=== PATIENT | female | born 1990 | race Caucasian/White ===

== ENCOUNTER 2016-09-29 05:39 | Outpatient (CLI) | payer BC, OTHER ==
[~2016-09-29] VITALS: Ht 154.9 cm; Wt 52.2 kg
[~2016-09-29 05:39] MED LIST: ACHD5005 PO; BENZ56AE TP; DCS100C PO; FRS325T PO; IBP600T1 PO
--- OUTSIDE RECORDS SUMMARY | 2016-09-29 05:42 | XMS REPORT | Continuity of Care Document ---
Author Author [facility] Organization [facility] Address Unknown Phone Unavailable Support Name Relationship Address Phone FAUZIA PLASCENCIA Next Of Kin [address] [place] [address] [phone] Insurance Providers Payer Name Policy Number Subscriber Name Relationship [facility] Emp [id number] Kristina Plascencia Nani 01 Self / Same As Patient Advance Directives Directive Response Recorded Date Advance Directives N 05/08/13 9:00pm Organ Donor N 05/08/13 9:00pm Problems No Known Problems or Medical conditions. Family History History Response Recorded Date/Time Hx Family Cancer N 05/08/13 11:43pm Hx Family Breast Cancer N 05/08/13 11: 43pm Hx Family Lung Cancer N 05/08/13 11:43pm Hx Family Colorectal Cancer N 05/08/13 11 :43pm Hx Family Cardiac Disorders Y 05/08/13 11 :43pm Hx Family Myocardial Infarction Y MGM 11:43pm Social History History Response Recorded Date/Time Alcohol Use Denies Use 05/08/13 11:41pm Recreational Drug Use N 05/08/13 11:41pm Recent Foreign Travel N 05/08/13 11:41pm Recent Infectious Disease Exposure N 11:41pm Hospitalization with Isolation Denies 5:47pm Sexually Transmitted Disease N 05/08/13 11:41pm Allergies, Adverse Reactions, Alerts Allergen Type Severity Reaction Last Updated No Known Drug Allergies 05/08/13 Medications Medication Dose Units Route Sig Qty Days Acetaminophen/Hydrocodone Bitart ([place] 5/325 Mg) 1 Tab PO Q4H PRN 15 Ferrous Sulfate (Feosol Tab) 325 Mg PO DAILY 30 Benzocaine/Menthol (Dermoplast [place]) 56 Ml TP UD PRN 1 Docusate Sodium (Colace Cap) 100 Mg PO BID 20 Ibuprofen (Motrin) 600 Mg PO Q6H 40 Immunizations Name Given Type MMR 05/10/13 A Tdap 05/10/13 A influenza, split (incl. purified surface antigen) 05/10/13 A MMR 05/10/13 A Tdap 05/10/13 A influenza, split (incl. purified surface antigen) 05/10/13 A Response Recorded Date/Time Status not known Unknown Results No Known Relevant Diagnostic Tests, Laboratory Data and/or Discharge Summary. Encounters Encounter Location Date/Time Discharged Inpatient [facility] 9:44pm
[2016-09-30] MEDS ORDERED: IBUP-1773 PO (09:05)
== END 2016-09-29 11:13 ==
LOC: PREOP 05:39
PROVIDERS: ATTEND Obstetrics & Gynecology
DX: Z01.818 Encounter for other preprocedural examination (principal); Z30.432 Encounter for removal of intrauterine contraceptive device

== ENCOUNTER 2016-09-30 07:00 | Day surgery (SDC) | payer BC, OTHER ==
[~2016-09-30] VITALS: Ht 154.9 cm; Wt 52.2 kg
[2016-09-30 07:38] LABS: BASOPHILS % (AUTO) 1 % (0-10); EOSINOPHILS # (AUTO) 0.2 10^3/uL (0.0-0.3); EOSINOPHILS % (AUTO) 3 % (0-10); LYMPHOCYTES # (AUTO) 1.7 X 10^3 (1.0-4.0); LYMPHOCYTES % (AUTO) 26 % (12-44); MEAN CORPUSCULAR HEMOGLOBIN 32 PG (25-34); MEAN CORPUSCULAR HGB CONC 36 G/DL (32-36); MEAN CORPUSCULAR VOLUME 88 FL (80-99); MEAN PLATELET VOLUME 9.6 FL (7.4-10.4); MONOCYTES # (AUTO) 0.4 X 10^3 (0.0-1.0); MONOCYTES % (AUTO) 6 % (0-12); NEUTROPHILS # (AUTO) 4.2 X 10^3 (1.8-7.8); NEUTROPHILS % (AUTO) 65 % (42-75); PLATELET COUNT 317 10^3/uL (130-400); RED CELL DISTRIBUTION WIDTH 12.2 % (10.0-14.5); WHITE BLOOD COUNT 6.5 10^3/uL (4.3-11.0)
[2016-09-30] MEDS ORDERED: LACTATED RINGERS 1,000 ML IV PRN (07:52)
[2016-09-30 07:55] VITALS: BP 116/67
[2016-09-30] MEDS ORDERED: LIDOCAINE PF 2% 10 ML (XYLOCAINE) AMP ONE (07:58)
[2016-09-30] MEDS ORDERED: ONDANSETRON 4 MG/2 ML (SDV) Z0FRAN ONE (07:58)
[2016-09-30] MEDS ORDERED: DEXAMETHASONE PF 10 MG/ML (DECADRON) VIAL ONE (07:58)
[2016-09-30] MEDS ORDERED: proPOfol 200 MG/20 ML (DIPRIVAN) VIAL IV ONE (07:58)
[2016-09-30] MEDS ORDERED: KETOROLAC 30 MG/ML VIAL ONE (07:59)
[2016-09-30] MEDS ORDERED: fentaNYL INJECTION 100 MCG/2 ML AMP ONE (07:59)
[2016-09-30] MEDS ORDERED: MIDAZOLAM 2 MG/2 ML (VERSED) VIAL ONE (07:59)
[2016-09-30] MEDS ORDERED: BUPIVACAINE 0.25% 30 ML (SENSORCAINE) VIAL ONE (08:11)
--- NOTE | 2016-09-30 08:32 | Progress Note-Pre Operative ---
Pre-Operative Progress Note H&P Reviewed The H&P was reviewed, patient examined and no changes noted. Date H&P Reviewed: Sep 30, 2016 Time H&P Reviewed: 08:32 Pre-Operative Diagnosis: Retained IUD, Bicornuate uterus ESAU OLIVEROS DO Sep 30, 2016 8:32 am
[2016-09-30] MEDS ORDERED: ONDANSETRON 4 MG/2 ML (SDV) Z0FRAN IVP PRN ×2 (09:00→09:15)
[2016-09-30] MEDS ORDERED: morphine INJ 10 MG/ML 1ML (SYR OR VIAL) IVP PRN (09:00)
[2016-09-30] MEDS ORDERED: MEPERIDINE (DEMEROL) INJ 50 MG/ML IVP PRN (09:00)
[2016-09-30] MEDS ORDERED: D5 LR IV SOLUTION 1,000 ML IV SCH (09:04)
[2016-09-30] MEDS ORDERED: IBUP-1773 PO (09:05)
--- NOTE | 2016-09-30 09:06 | Discharge Inst-Women's Service ---
Discharge Inst-Women's Serv Depart Medication/Instructions New, Converted or Re-Newed RX: RX on Chart Consults/Follow Up Additional Follow Up: Yes Orders/Referrals Dr. Oliveros in 3 weeks Activity Driving Instructions: You May Drive NO SMOKING: NO SMOKING Nothing Inside Vagina: No Douching, No [address], No Tampons Other Activity nothing in vagina for 2 days Diet Discharge Diet: No Restrictions Symptoms to Report to : Bleeding Excessive, Pain Increased, Fever Over 101 Degrees F, Vaginal Bleeding Increase, Questions/Concerns For Any Problems or Questions: Contact Your Physician ESAU OLIVEROS DO Sep 30, 2016 09:06
[2016-09-30] MEDS ORDERED: KETOROLAC 30 MG/ML VIAL IVP ONE (09:15)
[2016-09-30 09:30] VITALS: BP 101/67
[2016-09-30 10:00] VITALS: BP 97/69
--- NOTE | 2016-10-01 11:25 | OPERATIVE REPORT ---
PROCEDURE PHYSICIAN: ESAU OLIVEROS DATE OF PROCEDURE: 09/30/2016 PREOPERATIVE DIAGNOSIS: 1. Retained IUD. 2. Bicornate uterus. POSTOPERATIVE DIAGNOSES: 1. Retained IUD. 2. Bicornate uterus. PROCEDURE: Removal of IUD under IV sedation. SURGEON: Dr. Esau Oliveros. ANESTHESIA: IV sedation. ESTIMATED BLOOD LOSS: Minimal. URINE OUTPUT: 50 mL FLUID: 500 mL lactated ringer solution. FINDINGS: Retained IUD and a palpable bicornate uterus on bimanual examination. INDICATIONS FOR THE PROCEDURE: This 25-year-old female was coming into my office earlier this week for an annual well woman update on her care as well as removal of her IUD as she is planning for in the near future. Upon attempt to remove the IUD, it was very difficult and uncomfortable for the patient and it was not coming with gentle pulling on the strings. Therefore, I discussed with the patient doing this under IV sedation. The risk of the procedures was discussed with the patient in detail including risk of anesthesia. After all of her questions were answered she is scheduled later this week on . In the preoperative area it was once again reviewed with her mother and present the procedure in detail and the possible use of hysteroscopy. Once the consent was obtained, the patient was taken to the operating room. OPERATIVE REPORT IN DETAIL: Once in the operating room, IV sedation was found to be adequate. She was placed in dorsal lithotomy position, prepped and draped in the normal sterile fashion. A weighted speculum was inserted in the patient's vagina and right angle retractor is used to visualize the cervix. It was grasped at the 12 o'clock position using long Allis clamp. I perform a paracervical block at 3 and 9 o'clock position using 0.25% Marcaine. A total of 10 mL of are used, 5 at each injection site. I make injection site hemostatic using silver nitrate. I then grasp the IUD strings and with gentle pressure I am not able to dislodge the IUD therefore, I do take a narrow Haleigh and tease my way into the cervix to find the tip of the IUD. Once I find the tip of the IUD, easily removed by grasping the tip of the IUD and pulling it straight out. There is no active bleeding noted from the uterus afterwards. All the instruments were then removed from the patient's vagina. Straight catheterization is used to drain the bladder, the patient tolerated the procedure well and was taken to the recovery area in stable condition. Job ID: [id number] Dictated Date: 09/30/2016 09:28:18 Driver Salesman Date: 10/01/2016 11:16:01 / deborah
== END 2016-09-30 10:06 | disposition home or self-care (01) ==
LOC: SDC 07:00
PROVIDERS: ATTEND Obstetrics & Gynecology
DX: Z30.432 Encounter for removal of intrauterine contraceptive device (principal); Q51.3 Bicornate uterus
CPT/HCPCS: 36415; 84703; 85025; 86850; 86900; 86901; 87081

== ENCOUNTER → 2018-05-25 | Outpatient (CLI) | payer BC ==
[~2018-05-25] MED LIST changes: +IBUP-1773 PO
--- NOTE | 2018-05-25 11:53 | Diagnostic Imaging Report ---
INDICATION: survey. TECHNIQUE: Multiple real-time grayscale images were obtained over the gravid uterus. COMPARISON: There are no prior studies available for comparison. FINDINGS: There is a single live fetus in variable presentation. heart motion was noted and a rate of 122 BPM was recorded. There were no abnormalities identified but the spine was not well visualized due to lie. I would recommend that a short-term (4-6 week) followup ultrasound exam be performed for further study. The growth parameters are fairly uniform. The placenta is fundal and along the uterine body on the left. There is no sign of a previa. The amniotic fluid volume is within normal limits. The cervix was identified and measures 4.6 cm in length. IMPRESSION: 1. There is a single live fetus at approximately 21 weeks 2 days gestation +/-1.5 weeks. The EDC is October 03, 2018. 2. There were no abnormalities identified, although the spine was not optimally visualized. Recommendations as above. 3. The growth parameters are fairly uniform. Biometrical measurements are as follows: Biparietal 5.02 cm, age 21 weeks 2 days. Head circumference 18.36 cm, age 20 weeks 6 days. Abdominal circumference 17.18 cm, age 22 weeks 1 days. Femur length 3.4 cm, age 20 weeks 5 days. Sonographic estimate age: 21 weeks 2 days. Sonographic estimated date of delivery: 10/03/2018. Estimated Weight: 421 gm (+/- 62 gm). LMP percentile: 51%. heart rate: 123 beats per minute. number: 1 of 1. Dictated by: Dictated on workstation # [id number]
== END ==
LOC: RAD 10:02
PROVIDERS: ATTEND Obstetrics & Gynecology
DX: Z36.89 Encounter for other specified antenatal screening (principal); Z3A.21 21 weeks gestation of pregnancy
CPT/HCPCS: 76805

== ENCOUNTER 2018-09-20 03:23 | Outpatient (CLI) | payer BC ==
[~2018-09-20] VITALS: Ht 154.9 cm; Wt 65.9 kg
--- NOTE | 2018-09-20 03:30 | NUR ---
KRISTINA PLASCENCIA presented to unit via ambulation from home, accompanied by , with c/o CONTRACTIONS. KRISTINA PLASCENCIA weighed, gowned, voided, and to bed. EFHM and TOCO applied, VS taken. KRISTINA PLASCENCIA oriented to bed controls, call light, TV, heat, and A/C controls.
[2018-09-20 03:40] VITALS: BP 110/75
[2018-09-20] MEDS ORDERED: PREN-159 PO (03:51)
[2018-09-20 04:18] LABS: BILIRUBIN,URINE NEGATIVE (NEGATIVE); CLARITY,URINE CLEAR; COLOR,URINE YELLOW; GLUCOSE, URINE (UA) NEGATIVE (NEGATIVE); KETONES,URINE NEGATIVE (NEGATIVE); LEUKOCYTE ESTERASE ,URINE 2+ (NEGATIVE); NITRITE,URINE NEGATIVE (NEGATIVE); PH,URINE 7 (5-9); PROTEIN,URINE NEGATIVE (NEGATIVE); UROBILINOGEN,URINE NORMAL (NORMAL)
[2018-09-20 04:30] LABS: BACTERIA,URINE TRACE /HPF; WBC,URINE 0-2 /HPF
--- NOTE | 2018-09-20 05:35 | NUR ---
Pt. discharged home on labor precautions and instructed when she should return. Discharge instructions given and explained. Pt. verbalized understanding, signature to verify. Pt. ambulated off unit with all personal belongings in possession, accompanied by .
[2018-09-20] MEDS ORDERED: FLU QUADRIvalent (5+ YOA) 2018-2019 (AFLURIA) 0.5 ML IM ONE (08:30)
[2018-09-20] MEDS ORDERED: ONDANSETRON 4 MG/2 ML (SDV) Z0FRAN ONE (14:53)
[2018-09-20] MEDS ORDERED: D5 LR IV SOLUTION 1,000 ML IV ONE (14:53)
[2018-09-20] MEDS ORDERED: HYDROmorphone 2 MG/ML VIAL (DILAUDID) ONE (14:53)
[2018-09-20] MEDS ORDERED: SUFENTA 0.6MCG/ML BUPIVA 0.125 100 ML ONE (15:29)
[2018-09-20] MEDS ORDERED: fentaNYL INJECTION 100 MCG/2 ML AMP ONE (15:35)
[2018-09-20] MEDS ORDERED: LIDOCAINE/EPI 2% 1:200,00 (XYLOCAINE) 10 ML VIAL ONE (15:53)
[2018-09-20] MEDS ORDERED: BUPIVACAINE SPINAL 0.75% (SENSORCAINE) 2 ML AMP ONE (18:05)
[2018-09-20] MEDS ORDERED: ACHD5005 PO (18:58)
[2018-09-20] MEDS ORDERED: Benzocaine/Menthol TP (18:58)
[2018-09-20] MEDS ORDERED: IBUP-844 PO (18:58)
[2018-09-20] MEDS ORDERED: DOCU100C37 PO (18:58)
[2018-09-20] MEDS ORDERED: FERR325T18 PO (18:58)
== END 2018-09-20 05:35 ==
LOC: LDRP 03:23 → WSo 03:23
PROVIDERS: ATTEND Obstetrics & Gynecology
DX: O47.1 False labor at or after 37 completed weeks of gestation (principal); Z3A.38 38 weeks gestation of pregnancy
CPT/HCPCS: 81000; 99213

== ENCOUNTER 2018-09-20 14:43 | Inpatient (IN) | payer BC ==
[2018-09-20] VITALS (22 sets, daily range): BP systolic 93–143; BP diastolic 50–90
[~2018-09-20] VITALS: Ht 154.9 cm; Wt 65.3 kg
--- NOTE | 2018-09-20 14:40 | NUR ---
KRISTINA PLASCENCIA presented to unit via w/c, accompanied by , with c/o contractions. Pt. weighed, gowned, voided, and to bed. EFHM and TOCO applied, VS taken. Pt. oriented to bed controls, call light, TV, heat, and A/C controls.
[~2018-09-20 14:43] MED LIST changes: +PREN-159 PO
--- NOTE | 2018-09-20 14:48 | NUR ---
SVE 6cm, 80%. reports c/o ctx's q 3-4 mins apart. denies vaginal bleeding or leaking fluid. +FM.
--- NOTE | 2018-09-20 14:49 | NUR ---
was called with pt's admit exam, monitor tracing and c/o's pain. admission orders received .
[2018-09-20] MEDS ORDERED: D5 LR IV SOLUTION 1,000 ML IV SCH (14:54)
[2018-09-20] MEDS ORDERED: HYDROmorphone 2 MG/ML VIAL (DILAUDID) IV PRN (15:00)
[2018-09-20] MEDS ORDERED: ONDANSETRON 4 MG/2 ML (SDV) Z0FRAN IVP ONE (15:00)
--- NOTE | 2018-09-20 15:03 | NUR ---
#20g IV to Rt.wrist x1 attempt by this RN. site patent, secured with opsite. admission labs collected prior to IVF's infusing. pt breathing with ctx's.
--- NOTE | 2018-09-20 15:09 | NUR ---
Dilaudid 0.5ml IV given for c/o's pain. cont breathing with ctx's.
--- NOTE | 2018-09-20 15:10 | NUR ---
zofran 4mg IV given.
--- NOTE | 2018-09-20 15:17 | NUR ---
here. monitor tracing reviewed. SVE 8cm. AROM. moderate amount clear fluid noted. belén-care offered.
[2018-09-20 15:23] LABS: BASOPHILS % (AUTO) 0 % (0-10); EOSINOPHILS % (AUTO) 0 % (0-10); HEMATOCRIT 38 % (35-52); HEMOGLOBIN 13.2 G/DL (11.5-16.0); LYMPHOCYTES # (AUTO) 1.3 X 10^3 (1.0-4.0); LYMPHOCYTES % (AUTO) 10 % (12-44); MEAN CORPUSCULAR HEMOGLOBIN 30 PG (25-34); MEAN CORPUSCULAR HGB CONC 35 G/DL (32-36); MEAN CORPUSCULAR VOLUME 86 FL (80-99); MEAN PLATELET VOLUME 10.4 FL (7.4-10.4); MONOCYTES % (AUTO) 7 % (0-12); NEUTROPHILS # (AUTO) 10.9 X 10^3 (1.8-7.8); NEUTROPHILS % (AUTO) 82 % (42-75); PLATELET COUNT 230 10^3/uL (130-400); RED CELL DISTRIBUTION WIDTH 12.6 % (10.0-14.5); WHITE BLOOD COUNT 13.2 10^3/uL (4.3-11.0)
--- NOTE | 2018-09-20 15:26 | NUR ---
1 liter LR bolus infusing prior to epidural placement.
[2018-09-20] MEDS ORDERED: LACTATED RINGERS 1,000 ML IV ONE ×2 (15:34)
--- NOTE | 2018-09-20 15:34 | History & Physical-OB ---
OB - Chief Complaint & HPI Date/Time Date of Admission: Date of Admission: Date seen by a Provider: Sep 20, 2018 Time Seen by a Provider: 15:00 Chief Complaint/History OB-Reason for Admission/Chief: Onset of Labor Hx : 2 Hx Para: 1 Expected Date of Delivery: Oct 03, 2018 Gestational Age in Weeks: 38 Gestational Age in Days: 1 Admission Nurse Assessment Rev: Yes History of Labs O pos Antibody neg RI RPR NR HBsAg NR HIV NR GC neg GBS neg Allergies and Home Medications Allergies Coded Allergies: No Known Drug Allergies (Unverified , 05/08/13) Home Medications No.137/Iron/Folic Acd 1 Each Tablet, 1 EACH PO DAILY, (Reported) Patient Home Medication List Home Medication List Reviewed: Yes OB - History Hx of Present Care: Yes Ultrasounds: Normal mid trimester US Obstetrical Complications: None Medical Complications: None Obstetrical History Hx Termination: No Hx Multiple Gestation: No Hx Stillbirth: No Hx Complication: No Hx Induced Hypertens: No Hx Maternal Gestational Diabet: No Delivery History Hx Dystocia: No Hx Large For Gestational Age I: No Hx Small for Gestational Age I: No Hx Section: No Hx Vaginal Delivery Post C-Sec: No Hx Blood Disorders: No Adverse Rxn to Tranfusion: No Patient Past Medical History n/a Social History/Family History Sexually Transmitted Disease: No Immunizations Hepatitis A: No Hepatitis B: No Tetanus Booster (TDap): Unknown OB - Admission Exam Physical Exam HEENT: NCAT Heart: Rhythm Normal Lungs: Clear Abdomen: Gravid Extremities: Normal Reflexes: Normal Cervical Dilatation: 6cm Effacement: 75% Station: -1 Membranes: Intact Heart Rate: 130's Accelerations: Accelerations Present Decelerations: Variable Decelerations Short Term Variability: Present Finance Intern Variability: Average (6-25) Contractions on Admission: < 5 Minutes Apart Intensity: Firm Labs Laboratory Tests Test 09/20/18 15:03 Range/Units White Blood Count 13.2 H 4.3-11.0 10^3/uL Red Blood Count 4.34 L 4.35-5.85 10^6/uL Hemoglobin 13.2 11.5-16.0 G/DL Hematocrit 38 35-52 % Mean Corpuscular Volume 86 80-99 FL Mean Corpuscular Hemoglobin 30 25-34 PG Mean Corpuscular Hemoglobin Concent 35 32-36 G/DL Red Cell Distribution Width 12.6 10.0-14.5 % Platelet Count 230 130-400 10^3/uL Mean Platelet Volume 10.4 7.4-10.4 FL Neutrophils (%) (Auto) 82 H 42-75 % Lymphocytes (%) (Auto) 10 L 12-44 % Monocytes (%) (Auto) 7 0-12 % Eosinophils (%) (Auto) 0 0-10 % Basophils (%) (Auto) 0 0-10 % Neutrophils # (Auto) 10.9 H 1.8-7.8 X 10^3 Lymphocytes # (Auto) 1.3 1.0-4.0 X 10^3 Monocytes # (Auto) 1.0 0.0-1.0 X 10^3 Eosinophils # (Auto) 0.0 0.0-0.3 10^3/uL Basophils # (Auto) 0.0 0.0-0.1 10^3/uL OB - Assessment/Plan/Diagnosis Assessment Assessment: active labor Admission Dx 27 yo @ 38 weeks Active labor GBS neg Bicornuate uterus Admission Status: Inpatient Order (span 2 midnights) Reason for Inpatient Admission: Active labor Plan Plan: Other (AROM, and analgesia) ESAU OLIVEROS DO Sep 20, 2018 15:34
[2018-09-20 15:45] LABS: BILIRUBIN,URINE NEGATIVE (NEGATIVE); CLARITY,URINE CLEAR; COLOR,URINE YELLOW; GLUCOSE, URINE (UA) NEGATIVE (NEGATIVE); KETONES,URINE NEGATIVE (NEGATIVE); LEUKOCYTE ESTERASE ,URINE 2+ (NEGATIVE); NITRITE,URINE NEGATIVE (NEGATIVE); PH,URINE 7 (5-9); PROTEIN,URINE NEGATIVE (NEGATIVE); UROBILINOGEN,URINE NORMAL (NORMAL)
[2018-09-20] MEDS ORDERED: EPIDURAL (SUFENTA 0.6MCG/ML BUPIVA 0.125%) 100 ML BAG EPI PRN (15:45)
[2018-09-20] MEDS ORDERED: NALOXONE 0.4 MG/ML 1 ML (NARCAN) VIAL IV PRN (15:45)
[2018-09-20] MEDS ORDERED: ONDANSETRON 4 MG/2 ML (SDV) Z0FRAN IV PRN (15:45)
[2018-09-20 15:55] LABS: AMORPHOUS SEDIMENT,UR FEW AMOR PHOSPHATE /LPF; BACTERIA,URINE FEW /HPF; RBC,URINE RARE /HPF
[2018-09-20] MEDS ORDERED: OXYTOCIN/NORMAL SALINE 500 ML IV ONE (16:17)
[2018-09-20] MEDS: OXYTOCIN/NORMAL SALINE 500 ML IV SCH ×2 (18:32→19:06)
[2018-09-20] MEDS ORDERED: METHYLERGONOVINE 0.2 MG/ML (METHERGINE) AMP ONE (18:32)
--- NOTE | 2018-09-20 18:54 | OB Labor & Delivery Record ---
L&D History Date of Service Date of Service: Sep 20, 2018 History Expected Date of Delivery: Oct 03, 2018 Gestational Age in Weeks: 38 Hx : 2 Hx Para: 1 Complications Events: Routine care Operative Indications (Cesarea: N/A-Vaginal Delivery Intrapartal Events: None L&D Stage1 Stage One Onset of Labor - Date: Sep 20, 2018 Monitors and Tracing Monitor Mode: External Monitor Accelerations: Uniform Monitor Decelerations: Variable Station: -1 Tetryl Boiling Tub Operator Variability: Average (6-10) Short Term Variability: Present Presentation: Vertex Rupture of Membranes Spontaneous Ruture of Membrane: No Amniotic Membrane Rupture Time: 15:30 Amniotic Membrane Fluid Desc.: Clear Vaginal Bleeding Description: Normal Show Progress/Notes Patient received a spinal dose due to 8 cm dilatation after AROM was performed. She progressed from there without further augmentation to complete and +1 station. L&D Stage2 Stage Two Stage II Date: Sep 20, 2018 Monitors and Tracing Monitor Mode: External Monitor Accelerations: None Monitor Decelerations: Variable Jail Variability: Average (6-10) Short Term Variability: Present Position: Right Occiput Anterior Presentation: Vertex Signs of Distress by FHT Signs of Distress repetitive variable decels in to the 60s Cord Descript/Complications Cord Vessel Description: 3 Vessels Delivery Type Infant Delivery Method: Low Vacuum Extraction Anterior Shoulder: Right Episiotomy/Perineal Laceration Laceraction(s)/Extensions: Yes Episiotomy Description: Right Mediolateral Sutures Used: Vicryl Degree (describe repair) Due to maternal exhaustion and inability to progress vertex past +2-+3 station, kiwi vacuum extractor used for low extraction. Perineum infiltrated using .25% marcaine with epi, and RML performed. Suction cup placed down mid sagital suture line, and with next maternal ctx, pressure increased to 500 mmHG, and with maternal push head extended for delivery. Nuchal cord reduced x 1. Anterior/ posterior shoulders delivered and the remainder the infant is easily delivered and placed on maternal abdomen. RML repaired in usual fashion using 3-0 and 2-0 vicryl suture. Condition of Delivery 1 minute Comment: 8 5 minute Comment: 9 Notes live female infant weight 5lbs 6 oz. Condition of Condition of : Living Exam: No Observed Abnormalities Resuscitation Resuscitation: N/A - Spontaneous Resp L&D Stage3 Pictocin Suspected villamentous cord insertion due to gentle traction on the cord evulsing the cord. Placenta manually extracted 30 mu wide open of pitocin given , and 0.2 mg of Methergine given IM for mild uterine atony. Placenta Delivery Placenta Delivery: Manual Delivery Summary Summary Estimated blood loss (mL): 350 Attending at delivery: Esau Oliveros DO Condition of Delivery Examined: Cervix Examined, Uterus Explored Post Hemorrhage: No Condition of Mother stable Condition of Infant (s) stable ESAU OLIVEROS DO Sep 20, 2018 18:54
--- NOTE | 2018-09-20 18:56 | Discharge Inst-Women's Service ---
Discharge Inst-Women's Serv Depart Medication/Instructions New, Converted or Re-Newed RX: RX on Chart Final Diagnosis PPD 2 VAVD Consults/Follow Up Additional Follow Up: Yes Orders/Referrals Dr. Oliveros in 6 weeks Activity Activity: Activity as Tolerated Driving Instructions: No Driving for 1 Week NO SMOKING: NO SMOKING Nothing Inside Vagina: No Douching, No [place], No Tampons Diet Discharge Diet: No Restrictions Symptoms to Report to : Bleeding Excessive, Pain Increased, Fever Over 101 Degrees F, Vaginal Bleeding Increase, Questions/Concerns For Any Problems or Questions: Contact Your Physician ESAU OLIVEROS DO Sep 20, 2018 18:56
[2018-09-20] MEDS ORDERED: Benzocaine/Menthol TP (18:58)
[2018-09-20] MEDS ORDERED: ACHD5005 PO (18:58)
[2018-09-20] MEDS ORDERED: FERR325T18 PO (18:58)
[2018-09-20] MEDS ORDERED: IBUP-844 PO (18:58)
[2018-09-20] MEDS ORDERED: DOCU100C37 PO (18:58)
[2018-09-20] MEDS ORDERED: MEASLES,MUMPS,RUBELLA 1 EA INJ SQ ONE (19:00)
[2018-09-20] MEDS ORDERED: TETANUS,DIPTH,PERTUSS P/F (BOOSTRIX) 0.5 ML VIAL IM ONE (19:00)
[2018-09-20] MEDS ORDERED: WITCH HAZEL(TUCKS) 40 EA JAR TOP PRN (19:00)
[2018-09-20] MEDS ORDERED: BENZOCAINE/MENTHOL (DERMOPLAST) 56 ML CAN TP PRN (19:00)
--- NOTE | 2018-09-20 21:20 | NUR ---
Pt moved to pp room and and pericare education given.
[2018-09-20] MEDS: DOCUSATE SODIUM 100 MG (COLACE) CAP PO SCH (21:37)
[2018-09-20] MEDS: IBUPROFEN 600 MG (MOTRIN) TAB PO SCH (21:37)
[2018-09-20] MEDS ORDERED: CATHETER FLUSH 10 ML SYR IV SCH ×2 (22:00)
[2018-09-21] VITALS: BP 106/57
[2018-09-21] MEDS: HYDROcodone/APAP 5 MG/325 MG (LORTAB) TAB PO PRN ×3 (02:52→15:00)
[2018-09-21 04:14] VITALS: BP 99/63
[2018-09-21] MEDS: IBUPROFEN 600 MG (MOTRIN) TAB PO SCH ×4 (04:51→18:07)
[2018-09-21 06:24] LABS: BASOPHILS % (AUTO) 0 % (0-10); EOSINOPHILS % (AUTO) 0 % (0-10); HEMATOCRIT 34 % (35-52); HEMOGLOBIN 11.8 G/DL (11.5-16.0); LYMPHOCYTES # (AUTO) 1.7 X 10^3 (1.0-4.0); LYMPHOCYTES % (AUTO) 10 % (12-44); MEAN CORPUSCULAR HEMOGLOBIN 30 PG (25-34); MEAN CORPUSCULAR HGB CONC 35 G/DL (32-36); MEAN CORPUSCULAR VOLUME 88 FL (80-99); MEAN PLATELET VOLUME 10.4 FL (7.4-10.4); MONOCYTES # (AUTO) 1.5 X 10^3 (0.0-1.0); MONOCYTES % (AUTO) 9 % (0-12); NEUTROPHILS # (AUTO) 14.3 X 10^3 (1.8-7.8); NEUTROPHILS % (AUTO) 81 % (42-75); PLATELET COUNT 248 10^3/uL (130-400); RED CELL DISTRIBUTION WIDTH 12.7 % (10.0-14.5); WHITE BLOOD COUNT 17.6 10^3/uL (4.3-11.0)
[2018-09-21] MEDS ORDERED: FLU QUADRIvalent (5+ YOA) 2018-2019 (AFLURIA) 0.5 ML IM ONE (07:00)
[2018-09-21 08:00] VITALS: BP 102/70
[2018-09-21] MEDS: DOCUSATE SODIUM 100 MG (COLACE) CAP PO SCH ×2 (08:11→20:41)
[2018-09-21] MEDS: FERROUS SULF 325 MG (IRON) TAB PO SCH (08:11)
[2018-09-21] MEDS: PRENATAL VITAMIN 1 EA TAB PO SCH (08:12)
--- NOTE | 2018-09-21 08:15 | NUR ---
THIS RN INTRODUCES SELF TO PT AND SO AT THIS TIME. PT ON HANDS & KNEES IN BED, TRYING TO GET COMFORTBALE SHE STATES. CO PAIN IN BOTTOM. THIS RN SUGGESTS USE OF DERMOPLAST SPRAY, TUCKS PADS, &/OR ICE. PT VERBALIZES UNDERSTANDING. RATING PAIN 7/10, REQUESTS PAIN MEDS FOR RELIEF. THIS RN ADMINS MEDS. PHYSICAL ASSESSMENT COMPLETE, VSS. PT DENIES NEEDS OR CONCERNS AT THIS TIME. CALL LIGHT WITHIN REACH.
--- NOTE | 2018-09-21 09:04 | Postpartum Progress Note ---
Note Note Day # 1 Subjective: Patient is without complaints. Ambulating, voiding. Tolerating a regular diet without nausea or vomiting. Normal lochia. Pain is well controlled with oral pain medications. Objective: Physical Exam: General - Alert and oriented, no apparent distress Abdomen - Soft, appropriately tender to palpation, non-distended, fundus firm at umbilicus Extremities - no edema, negative Kike's bilaterally Assessment: VAVD Plan: Routine care. Encourage breast feeding. Encourage ambulation. Ferrous sulfate supplementation. Plan for discharge tomorrow Vitals - Labs Vital Signs - I&O Vital Signs Date Time Temp Pulse Resp B/P (MAP) Pulse Ox O2 Delivery O2 Flow Rate FiO2 09/21/18 08:00 97.6 78 16 102/70 (81) 98 Room Air 09/21/18 04:14 98.2 76 20 99/63 (75) 96 Room Air 09/21/18 00:00 98.2 71 20 106/57 (73) Room Air 09/20/18 21:00 97.9 68 20 123/65 (84) Room Air 09/20/18 20:23 76 20 117/70 (86) Room Air 09/20/18 19:53 75 20 143/90 (107) Room Air 09/20/18 19:23 20 112/67 (82) Room Air 09/20/18 19:07 80 20 101/58 (72) Room Air 09/20/18 18:55 88 20 105/52 (69) Room Air 09/20/18 18:40 78 20 112/59 (76) Room Air 09/20/18 18:25 87 20 109/54 (72) Room Air 09/20/18 18:10 102 20 125/60 (81) Room Air 09/20/18 17:55 80 20 124/78 (93) Room Air 09/20/18 17:40 97.1 81 20 115/78 (90) Room Air 09/20/18 17:25 69 20 109/57 (74) Room Air 09/20/18 17:10 68 20 93/50 (64) Room Air 09/20/18 16:55 86 20 107/65 (79) Room Air 09/20/18 16:40 77 20 106/67 (80) Room Air 09/20/18 16:20 75 20 131/59 (83) Room Air 09/20/18 16:05 73 18 136/73 (94) 98 Room Air 09/20/18 16:00 67 20 122/78 (93) 99 Room Air 09/20/18 15:52 71 18 134/85 (101) 99 Room Air 09/20/18 15:47 71 18 133/80 (97) 100 Room Air 09/20/18 15:42 72 18 124/71 (88) 98 Room Air 09/20/18 14:43 97.7 81 20 122/77 (92) Room Air Labs Laboratory Tests 09/20/18 15:03: White Blood Count 13.2H, Red Blood Count 4.34L, Hemoglobin 13.2, Hematocrit 38, Mean Corpuscular Volume 86, Mean Corpuscular Hemoglobin 30, Mean Corpuscular Hemoglobin Concent 35, Red Cell Distribution Width 12.6, Platelet Count 230, Mean Platelet Volume 10.4, Neutrophils (%) (Auto) 82H, Lymphocytes (%) (Auto) 10L, Monocytes (%) (Auto) 7, Eosinophils (%) (Auto) 0, Basophils (%) (Auto) 0, Neutrophils # (Auto) 10.9H, Lymphocytes # (Auto) 1.3, Monocytes # (Auto) 1.0, Eosinophils # (Auto) 0.0, Basophils # (Auto) 0.0 09/20/18 15:05: Urine Color YELLOW, Urine Clarity CLEAR, Urine pH 7, Urine Specific Pur[place] 1.010L, Urine Protein NEGATIVE, Urine Glucose (UA) NEGATIVE, Urine Ketones NEGATIVE, Urine Nitrite NEGATIVE, Urine Bilirubin NEGATIVE, Urine Urobilinogen NORMAL, Urine Leukocyte Esterase 2+H, Urine RBC (Auto) 1+H, Urine RBC RARE, Urine WBC 5-10H, Urine Squamous Epithelial Cells 5-10, Urine Crystals PRESENTH, Urine Amorphous Sediment FEW VIDYA PHOSPHATEH, Urine Bacteria FEWH, Urine Casts NONE, Urine Mucus SMALLH, Urine Culture Indicated YES 09/21/18 06:00: White Blood Count 17.6H, Red Blood Count 3.90L, Hemoglobin 11.8, Hematocrit 34L , Mean Corpuscular Volume 88, Mean Corpuscular Hemoglobin 30, Mean Corpuscular Hemoglobin Concent 35, Red Cell Distribution Width 12.7, Platelet Count 248, Mean Platelet Volume 10.4, Neutrophils (%) (Auto) 81H, Lymphocytes (%) (Auto) 10L, Monocytes (%) (Auto) 9, Eosinophils (%) (Auto) 0, Basophils (%) (Auto) 0, Neutrophils # (Auto) 14.3H, Lymphocytes # (Auto) 1.7, Monocytes # (Auto) 1.5H, Eosinophils # (Auto) 0.0, Basophils # (Auto) 0.0 ESAU OLIVEROS DO Sep 21, 2018 09:04
--- NOTE | 2018-09-21 10:16 | Anesthesia-Regional Post-Op ---
Regional Patient Condition Mental Status: Alert, Oriented x3 Circulation: Same as Pre-Op Headache: Absent Sensation: Full Recovery Motor Block: Absent Post Op Complications Complications None Follow Up Care/Instructions Patient Instructions None needed. Anesthesia/Patient Condition Patient is doing well, no complaints, stable vital signs, no apparent adverse anesthesia problems. No complications reported per nursing. TOMY MUNOZ CRNA Sep 21, 2018 10:16
[2018-09-21 12:00] VITALS: BP 101/60
[2018-09-21 16:00] VITALS: BP 103/62
[2018-09-21 20:00] VITALS: BP 102/62
[2018-09-22] VITALS: BP 106/68
[2018-09-22] MEDS: IBUPROFEN 600 MG (MOTRIN) TAB PO SCH ×3 (00:10→12:24)
[2018-09-22 05:26] VITALS: BP 136/79
[2018-09-22 05:54] VITALS: BP 89/55
--- NOTE | 2018-09-22 07:33 | Postpartum Progress Note ---
Note Note Day # 2 Subjective: Patient is without complaints. Ambulating, voiding. Tolerating a regular diet without nausea or vomiting. Normal lochia. Pain is well controlled with oral pain medications Objective: Physical Exam: General - Alert and oriented, no apparent distress Abdomen - Soft, appropriately tender to palpation, non-distended, fundus firm at umbilicus Extremities - no edema, negative Kike's bilaterally Assessment: PPD 2 VAVD Plan: Routine care. Encourage breast feeding. Encourage ambulation. Ferrous sulfate supplementation. Plan for discharge today Vitals - Labs Vital Signs - I&O Vital Signs Date Time Temp Pulse Resp B/P (MAP) Pulse Ox O2 Delivery O2 Flow Rate FiO2 09/22/18 05:54 97.9 82 16 89/55 (66) 97 Room Air 09/22/18 00:00 98.6 78 18 106/68 (81) Room Air 09/21/18 20:00 98.2 82 16 102/62 (75) Room Air 09/21/18 16:00 97.7 67 16 103/62 (76) 99 Room Air 09/21/18 12:00 98.0 73 16 101/60 (74) 96 Room Air 09/21/18 08:00 97.6 78 16 102/70 (81) 98 Room Air Labs Microbiology 09/20/18 Urine Culture - Final, Complete NO GROWTH ESAU OLIVEROS DO Sep 22, 2018 07:33
[2018-09-22] MEDS: FERROUS SULF 325 MG (IRON) TAB PO SCH (09:29)
[2018-09-22] MEDS: DOCUSATE SODIUM 100 MG (COLACE) CAP PO SCH (09:29)
[2018-09-22] MEDS: PRENATAL VITAMIN 1 EA TAB PO SCH (09:29)
[2018-09-22] MEDS ORDERED: FLU QUADRIvalent (5+ YOA) 2018-2019 (AFLURIA) 0.5 ML IM ONE (09:31)
[2018-09-22] MEDS ORDERED: TETANUS,DIPTH,PERTUSS P/F (BOOSTRIX) 0.5 ML VIAL IM ONE (09:32)
[2018-09-22 13:15] VITALS: BP 100/65
--- NOTE | 2018-09-22 13:50 | NUR ---
Discharge instructions explained, signed and copy to patient. pt verbalized understanding of instructions and denied questions. prescriptions given earlier today to get filled in case pt becomes room in parent.
--- NOTE | 2018-09-22 19:05 | NUR ---
Discharged to home. Ambulates self downstairs to private vehicle with belongings in hand.
== END 2018-09-22 19:05 | disposition home or self-care (01) | DRG 807 ==
LOC: WSo 14:43 → LDRP 14:44 → WSo 14:49 → LDRP 21:19
PROVIDERS: ADMIT Obstetrics & Gynecology; ATTEND Obstetrics & Gynecology
PROC: 10D07Z6 Extraction of Products of Conception, Vacuum, Via Natural or Artificial Opening (ICD-10-PCS; principal; 2018-09-20)
PROC: 10E0XZZ Delivery of Products of Conception, External Approach (ICD-10-PCS; 2018-09-20)
PROC: 0W8NXZZ Division of Female Perineum, External Approach (ICD-10-PCS; 2018-09-20)
DX: O34.03 Maternal care for unspecified congenital malformation of uterus, third trimester (principal); O69.81X0 Labor and delivery complicated by cord around neck, without compression, not applicable or unspecified; O43.123 Velamentous insertion of umbilical cord, third trimester; O76 Abnormality in fetal heart rate and rhythm complicating labor and delivery; O65.5 Obstructed labor due to abnormality of maternal pelvic organs; O75.81 Maternal exhaustion complicating labor and delivery; Z3A.38 38 weeks gestation of pregnancy; Z37.0 Single live birth; Z87.42 Personal history of other diseases of the female genital tract
CPT/HCPCS: 36415; 81000; 85025; 86850; 86900; 86901; 87088; 90471; 90686; 90715; 99212

== ENCOUNTER → 2019-02-02 | Outpatient (CLI) | payer BC ==
[~2019-02-02] MED LIST changes: +Benzocaine/Menthol TP; +DOCU100C37 PO; +FERR325T18 PO; +IBUP-844 PO; -PREN-159 PO; +PREN-164 PO
--- NOTE | 2019-02-02 13:55 | Diagnostic Imaging Report ---
PROCEDURE: US Non-ob pelvis comp/trans. TECHNIQUE: Multiple realtime grayscale images were obtained of the pelvis in various projections endovaginally. Transabdominal imaging was also performed. INDICATION: for four months with dyspareunia. FINDINGS: The uterus measures 8.3 x 7.9 x 3.1 cm. Patient appears to have a bicornuate uterus. Left endometrium is 10 mm in thickness. Right endometrium is 9 mm in thickness. No myometrial mass is detected. There is a cystic mass in the region of the vaginal canal measuring 3.1 x 1.9 x 2.2 cm. Right ovary measures 4.0 x 2.4 x 2.1 cm and left ovary measures 3.6 x 1.8 x 1.8 cm. The ovaries contain small follicles. There is blood flow bilaterally. No adnexal mass or free fluid is seen. IMPRESSION: 1. Bicornuate uterus. 2. 3.1 cm vaginal wall cyst. No other significant abnormality is detected. Dictated by: Dictated on workstation # [id number]
== END ==
LOC: RAD 11:53
PROVIDERS: ATTEND Obstetrics & Gynecology
DX: N89.8 Other specified noninflammatory disorders of vagina (principal); Q51.3 Bicornate uterus; N94.10 Unspecified dyspareunia
CPT/HCPCS: 76830; 76856

== ENCOUNTER → 2019-03-14 | Outpatient (CLI) | payer BC ==
[~2019-03-14] MED LIST changes: +IOHEXOL 350 MG/ML 100 ML (OMNIPAQUE 350) VIAL IV ONE; +NS (IVPB) 250 ML IV ONE; +NS (IVPB) 250 ML IV SCH; +SOD CHL BACTER. 10 ML (IV START) VIAL IJ ONE
--- NOTE | 2019-03-14 13:02 | Diagnostic Imaging Report ---
Indication: Vaginal wall mass. The study is performed to evaluate for urethral diverticulum. A Richard catheter was inserted into the patient's bladder. Balloon was inflated. Iodinated contrast mixed with saline was injected in a retrograde fashion. Once adequate bladder distention was achieved, a Richard catheter was removed. Patient then voided on the table during rapid spot film acquisition AP and oblique position. A preliminary radiograph over the pelvis is unremarkable. The bladder has a smooth contour. There appears to be a smooth walled impression upon the bladder base which may be secondary to the known vaginal wall mass. No abnormal accumulations of contrast are seen to suggest urethral diverticulum. Urethra is unremarkable. Impression: No evidence of urethral diverticulum. There is impression upon the bladder base by smooth-walled mass, correlating with the cystic mass noted on pelvic ultrasound within the vaginal wall. Dictated by: Dictated on workstation # [id number]
== END ==
LOC: RAD 09:48
PROVIDERS: ATTEND Obstetrics & Gynecology
DX: N89.8 Other specified noninflammatory disorders of vagina (principal)
CPT/HCPCS: 74455

== ENCOUNTER 2019-03-20 05:35 | Outpatient (CLI) | payer BC ==
[~2019-03-20] VITALS: Ht 154.9 cm; Wt 55.8 kg
[~2019-03-20 05:35] MED LIST changes: -IOHEXOL 350 MG/ML 100 ML (OMNIPAQUE 350) VIAL IV ONE; -NS (IVPB) 250 ML IV ONE; -NS (IVPB) 250 ML IV SCH; -SOD CHL BACTER. 10 ML (IV START) VIAL IJ ONE
== END 2019-03-20 09:15 | disposition home or self-care (01) ==
LOC: PREOP 05:35
PROVIDERS: ATTEND Obstetrics & Gynecology
DX: Z01.818 Encounter for other preprocedural examination (principal)

== ENCOUNTER 2019-03-22 07:42 | Day surgery (SDC) | payer BC ==
[2019-03-22] VITALS (20 sets, daily range): BP systolic 80–112; BP diastolic 46–70
[~2019-03-22] VITALS: Ht 154.9 cm; Wt 55.8 kg
[2019-03-22] MEDS ORDERED: LIDOCAINE PF 2% 5 ML (XYLOCAINE) VIAL ONE ×2 (08:19→14:32)
[2019-03-22] MEDS ORDERED: proPOfol 200 MG/20 ML (DIPRIVAN) VIAL IV ONE ×2 (08:19→14:32)
[2019-03-22] MEDS ORDERED: DEXAMETHASONE 10 MG/ML (DECADRON) 1 ML VIAL ONE ×2 (08:19→14:58)
[2019-03-22] MEDS ORDERED: ONDANSETRON 4 MG/2 ML (SDV) Z0FRAN ONE ×2 (08:19→14:32)
[2019-03-22] MEDS ORDERED: SEVOFLURANE (ULTANE) 15 ML INHAL SOLN ONE ×4 (08:19→14:32)
[2019-03-22] MEDS ORDERED: MIDAZOLAM 2 MG/2 ML (VERSED) VIAL ONE (08:20)
[2019-03-22] MEDS ORDERED: fentaNYL INJECTION 100 MCG/2 ML AMP ONE ×2 (08:20→14:32)
[2019-03-22 08:27] LABS: BASOPHILS % (AUTO) 1 % (0-10); EOSINOPHILS # (AUTO) 0.1 10^3/uL (0.0-0.3); EOSINOPHILS % (AUTO) 2 % (0-10); HEMATOCRIT 42 % (35-52); HEMOGLOBIN 14.3 G/DL (11.5-16.0); LYMPHOCYTES # (AUTO) 1.7 X 10^3 (1.0-4.0); LYMPHOCYTES % (AUTO) 33 % (12-44); MEAN CORPUSCULAR HEMOGLOBIN 30 PG (25-34); MEAN CORPUSCULAR HGB CONC 34 G/DL (32-36); MEAN CORPUSCULAR VOLUME 88 FL (80-99); MEAN PLATELET VOLUME 9.5 FL (7.4-10.4); MONOCYTES # (AUTO) 0.4 X 10^3 (0.0-1.0); MONOCYTES % (AUTO) 7 % (0-12); NEUTROPHILS # (AUTO) 2.9 X 10^3 (1.8-7.8); NEUTROPHILS % (AUTO) 58 % (42-75); PLATELET COUNT 297 10^3/uL (130-400); RED CELL DISTRIBUTION WIDTH 12.5 % (10.0-14.5)
[2019-03-22] MEDS: LACTATED RINGERS 1,000 ML IV PRN ×3 (08:57→14:30)
[2019-03-22] MEDS ORDERED: BUP/EPI 0.25% 1:200,000 (MARCAINE) 10 ML VIAL IJ ONE (08:58)
[2019-03-22] MEDS ORDERED: BUPIVACAINE 0.25% 30 ML (SENSORCAINE) VIAL ONE (09:13)
--- NOTE | 2019-03-22 09:31 | Progress Note-Pre Operative ---
Pre-Operative Progress Note H&P Reviewed The H&P was reviewed, patient examined and no changes noted. Date Seen by Provider: Mar 22, 2019 Time Seen by Provider: 09:00 Date H&P Reviewed: Mar 22, 2019 Time H&P Reviewed: 09:00 Pre-Operative Diagnosis: Anterior vaginal wall mass ESAU OLIVEROS DO Mar 22, 2019 09:31
[2019-03-22] MEDS ORDERED: VASOPRESSIN INJECTION 20 UNIT/ML VIAL ONE (09:32)
[2019-03-22] MEDS ORDERED: NS (IVPB) 0 ML ONE (09:32)
--- NOTE | 2019-03-22 09:36 | Discharge Inst-Women's Service ---
Discharge Inst-Women's Serv Depart Medication/Instructions New, Converted or Re-Newed RX: RX on Chart Problems Reviewed?: Yes Consults/Follow Up Additional Follow Up: Yes Orders/Referrals Dr. Oliveros in 4 weeks Activity Activity: Activity as Tolerated Driving Instructions: You May Drive (do not drive while taking hydrocodone) NO SMOKING: NO SMOKING Nothing Inside Vagina: No Douching, No [place], No Tampons Diet Discharge Diet: No Restrictions Symptoms to Report to : Bleeding Excessive, Pain Increased, Fever Over 101 Degrees F, Vaginal Bleeding Increase, Questions/Concerns ESAU OLIVEROS DO Mar 22, 2019 09:36
[2019-03-22] MEDS ORDERED: ACHD5005 PO (09:38)
[2019-03-22] MEDS ORDERED: IBUP-1773 PO (09:38)
[2019-03-22] MEDS ORDERED: HYDROcodone/APAP 5 MG/325 MG (LORTAB) TAB PO PRN (09:45)
[2019-03-22] MEDS ORDERED: KETOROLAC 30 MG/ML VIAL IVP ONE (09:45)
[2019-03-22] MEDS ORDERED: THROMBIN 5,000 UNIT (RECOTHROM) VIAL ONE (10:00)
[2019-03-22] MEDS ORDERED: morphine INJ 10 MG/ML 1ML (SYR OR VIAL) ONE ×2 (10:40→15:21)
[2019-03-22] MEDS ORDERED: ONDANSETRON 4 MG/2 ML (SDV) Z0FRAN IVP PRN ×2 (10:45→16:00)
[2019-03-22] MEDS ORDERED: morphine INJ 10 MG/ML 1ML (SYR OR VIAL) IVP ONE (10:45)
[2019-03-22] MEDS ORDERED: HYDROmorphone 2 MG/ML VIAL (DILAUDID) IV ONE ×3 (10:45→16:00)
--- NOTE | 2019-03-22 11:30 | NUR ---
PT TO WS ROOM 305 VIA BED ACCOMPANIED BY PACU STAFF. REPORT REC'D FROM Emory FOUNTAIN RN. ASSESSMENT COMPLETED, VS TAKEN. CALF SCD'S ON AND ACTIVATED. IV FLUIDS TO PUMP. PT AND FAMILY ORIENTED TO ROOM AND CALL LIGHT, ROOM SERVICE. IS AT BEDSIDE.
[2019-03-22] MEDS: ONDANSETRON 4 MG/2 ML (SDV) Z0FRAN IVP PRN ×2 (12:55→20:39)
--- NOTE | 2019-03-22 13:00 | NUR ---
VAG PACKING/VPAD CHECKED. VAG PACKING SATURATED BUT HAS NOT LEAKED ONTO VPAD. WILL CONTINUE TO MONITOR.
[2019-03-22] MEDS: D5 LR IV SOLUTION 1,000 ML IV SCH ×2 (13:16→23:51)
--- NOTE | 2019-03-22 13:45 | NUR ---
TO ROOM TO ANSWER CALL LIGHT. PT REPORTS FEELING DIZZY, LIGHT HEADED. VS TAKEN, STABLE. VAG PACKING SATURATED AND VPAD AT LEAST 1/2 FULL OF BRIGHT RED BLOOD. DR. OLIVEROS CALLED AND NOTIFIED OF BLEEDING AND PT C/O AND VS. JUST CONTINUE TO MONITOR FOR NOW.
--- NOTE | 2019-03-22 13:50 | NUR ---
VPAD CHANGED, NOTED TO BE 2/3 FULL. KEPT TO WEIGH.
--- NOTE | 2019-03-22 14:00 | NUR ---
1400 DR. OLIVEROS ON UNIT. TO ROOM TO SEE PT. FIRST VPAD SHOWN TO DR REENA ASSESSING PERINEUM. TO REPLACE VAG PACKING. SUPPLIES OBTAINED, 0.5MG DILAUDID GIVEN IV FOR PAIN PER VERBAL ORDER. ORIGINAL VAG PACKING REMOVED PER , KEPT TO WEIGH. VAG PACKING REPLACED PER , X 2 PACKS. PT VERBALIZES PAIN AND PRESSURE BUT TOLERATES PROCEDURE WELL. 1420 THIS RN AND A. BACK PERFORMING PERICARE AND ATTEMPTING TO CHANGE LINENS ON BED. VAG PACKING NOTED TO BE SATURATED AGAIN AND BLOOD DRIPPING DOWN LEG. DR. OLIVEROS STILL ON UNIT, NOTIFIED AND TO BEDSIDE TO ASSESS. DECIDING TO TAKE PT BACK TO OR FOR REVISION. 1428 SURGERY NOTIFIED 1430 CONSENT OBTAINED FOR SURGERY. IV TO OR TUBING AND LR BOLUS STARTED. PORTILLO CATHETER EMPTIED, 150ML CLEAR, YELLOW URINE OBTAINED. VS TAKEN. 1440 OR STAFF ON UNIT. REPORT GIVEN. CARES ASSUMED PER OR RNS AND PT TAKEN OFF UNIT VIA BED.
[2019-03-22] MEDS ORDERED: HYDROmorphone 2 MG/ML VIAL (DILAUDID) ONE ×2 (14:08→15:22)
[2019-03-22] MEDS ORDERED: SUCCINYLCHOLINE INJ 100 MG/5 ML SYR ONE (14:32)
[2019-03-22] MEDS ORDERED: METOCLOPRAMIDE INJ 10 MG/2 ML (REGLAN) ONE (14:58)
--- NOTE | 2019-03-22 15:00 | NUR ---
ORIGINAL VPAD AND PACKING WEIGHED, 190ML NOTED.
[2019-03-22] MEDS ORDERED: PHENYLEPHRINE 100 MCG/ML 10 ML (ANESTHESIA) SYR ONE (15:06)
[2019-03-22] MEDS ORDERED: ESTROGENS CONJ. CREAM 30 GM (PREMARIN) TUBE ONE (15:11)
--- NOTE | 2019-03-22 15:47 | Progress Note ---
Standard Progress Note Progress Notes/Assess & Plan Date Seen by a Provider: Mar 22, 2019 Time Seen by a Provider: 14:30 Progress/Assessment & Plan Called to floor to evaluate patient due to bleeding noted. Upon arrival vag packing is soaked, but patient stable otherwise. Blood is dripping from packing, VSS and patient is without complaint. Vaginal pad beneath patient is soaked as well. Packing is then removed, and patient is medicated with 0.5 mg dilaudid, and repacked. Which is soaked again before I leave the room. Discussed with the patient going back to the OR and addressing with revision of ligation of vaginal incision. Consent was obtained, patient was then taken to the OR. See operative note ESAU OLIVEROS DO Mar 22, 2019 3:47 pm
--- NOTE | 2019-03-22 16:40 | NUR ---
PT RETURNED TO ROOM 305 VIA BED ACCOMPANIED BY PACU STAFF. REPORT REC'D BEDSIDE FROM Nikki GODFREY RN. ASSESSMENT COMPLETED, VS TAKEN. IV FLUIDS TO PUMP. SCD'S ON AND ACTIVATED. FRESH ICE WATER PROVIDED. PORTILLO CATHETER DRAINING CLEAR YELLOW URINE TO DEPENDENT DRAINAGE. VAG PACKING AND VPAD DRY.
--- NOTE | 2019-03-22 17:00 | NUR ---
PT REQUESTING TO EAT. FOOD PROVIDED BY FAMILY.
--- NOTE | 2019-03-22 17:30 | NUR ---
VAG PACKING/VPAD CHECKED, BOTH REMAIN DRY.
[2019-03-22 18:22] LABS: HEMOGLOBIN 11.7 G/DL (11.5-16.0); MEAN PLATELET VOLUME 9.3 FL (7.4-10.4); WHITE BLOOD COUNT 14.8 10^3/uL (4.3-11.0)
--- NOTE | 2019-03-22 18:30 | NUR ---
PT REPORTS STARTING TO FEEL SOME DISCOMFORT. ORDERS REVIEWED. DR. OLIVEROS CALLED TO CLARIFY TORADOL D/C'D. ORDERS TO KEEP TORADOL D/C'D, GIVE LORTAB OR 1000MG TYLENOL IF PT DOES NOT WANT LORTAB. ORDER ALSO REC'D FOR 0.5MG DILAUDID IV FOR BREAKTHROUGH PAIN IF NEEDED. RN TO ROOM TO SEE WHICH MED PT PREFERS. PT SLEEPING SOUNDLY, NO S/S OF DISTRESS NOTED. WILL ALLOW TO REST FOR NOW.
[2019-03-22] MEDS ORDERED: HYDROmorphone 2 MG/ML VIAL (DILAUDID) IV PRN (19:15)
[2019-03-22] MEDS ORDERED: ACETAMINOPHEN 500 MG TAB (TYLENOL) PO PRN (19:15)
--- NOTE | 2019-03-22 19:48 | NUR ---
Patient appears asleep in bed, respiratory rate even and unlabored. Calf SCDs in place, mirza patent to dependant drainage. Will return for assessment.
--- OUTSIDE RECORDS SUMMARY | 2019-03-22 22:24 | XMS REPORT | Continuity of Care Document ---
Author Organization Unknown Address Unknown Phone Unavailable Allergies Active Description Code Type Severity Reaction Onset Reported/Identified Relationship to Patient Clinical Status Yes No Known Drug Allergies [id number] Drug Allergy Unknown N/A 05/08/2013 Medications There is no data. Problems Date Dx Coded Attending Type Code Diagnosis Diagnosed By 09/30/2016 FENECH DOESAU S Ot Z01.818 ENCOUNTER FOR OTHER PREPROCEDURAL EXAMIN 09/30/2016 FENECH DOESAU S Ot Z30.432 ENCOUNTER FOR REMOVAL OF INTRAUTERINE CO 09/30/2016 FENECH DO, ESAU S Ot Q51.3 BICORNATE UTERUS 09/30/2016 FENECH DO, SEAU S Ot Z30.432 ENCOUNTER FOR REMOVAL OF INTRAUTERINE CO 10/01/2016 FENECH DO, ESAU S Ot Q51.3 BICORNATE UTERUS 10/01/2016 FENECH DO, ESAU S Ot Z30.432 ENCOUNTER FOR REMOVAL OF INTRAUTERINE CO 05/31/2018 FENECH DO, ESAU S Ot Z36.89 ENCOUNTER FOR OTHER SPECIFIED 05/31/2018 FENECH DO, ESAU S Ot Z3A.21 21 WEEKS GESTATION OF 09/20/2018 ELISA NASCIMENTO DO Ot O47.1 FALSE LABOR AT OR AFTER 37 COMPLETED WEE 09/20/2018 ELISA NASCIMENTO DO, Ot Z3A.38 38 WEEKS GESTATION OF 09/20/2018 FENECH DO, ESAU S Ot Z36.89 ENCOUNTER FOR OTHER SPECIFIED 09/20/2018 FENECH DO, ESAU S Ot Z3A.21 21 WEEKS GESTATION OF 09/20/2018 FENECH DO, ESAU S Ot Z36.89 ENCOUNTER FOR OTHER SPECIFIED 09/20/2018 FENECH DO, ESAU S Ot Z3A.21 21 WEEKS GESTATION OF 09/21/2018 ELISA NASCIMENTO DO Ot O47.1 FALSE LABOR AT OR AFTER 37 COMPLETED WEE 09/21/2018 ELISA NASCIMENTO DO, Ot Z3A.38 38 WEEKS GESTATION OF 09/22/2018 FENECH DO ESAU S Ot 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 09/22/2018 ESAU OLIVEROS DO Ot 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, 09/22/2018 DOMO DENT ESAU Lamar Ot O65.5 OBSTRUCTED LABOR DUE TO ABNLT OF MATERNA 09/22/2018 DOMO DENT ESAU Lamar Ot O69.81X0 LABOR AND DEL COMP BY CORD AROUND NECK, 09/22/2018 DOMO DENT ESAU Lamar Ot O75.81 MATERNAL EXHAUSTION COMPLICATING LABOR A 09/22/2018 DOMO DENT ESAU Lamar Ot O76 ABNLT IN HEART RATE AND RHYTHM COM 09/22/2018 DOMO DENT ESAU Lamar Ot Z37.0 SINGLE LIVE 09/22/2018 DOMO DENT ESAU Lamar Zuhair Z3A.38 38 WEEKS GESTATION OF 09/22/2018 DOMO DENT ESAU Lamar Ot Z87.42 PERSONAL HISTORY OF OTH DISEASES OF THE 02/01/2019 DOMO DENT ESAU Lamar Ot Z36.89 ENCOUNTER FOR OTHER SPECIFIED 02/01/2019 DOMO DENT ESAU Lamar Zuhair Z3A.21 21 WEEKS GESTATION OF 02/13/2019 DOMO DENT ESAU Lamar Ot N89.8 OTHER SPECIFIED NONINFLAMMATORY DISORDER 02/13/2019 DOMO DENT ESAU Lamar Ot N94.10 UNSPECIFIED DYSPAREUNIA 02/13/2019 DOMO DENT ESAU Lamar Ot Q51.3 BICORNATE UTERUS 03/22/2019 DOMO DENT ESAU Lamar Zuhair Z01.818 ENCOUNTER FOR OTHER PREPROCEDURAL EXAMIN Procedures Code Description Performed By Performed On [id number] DIVISION OF FEMALE PERINEUM, EXTERNAL AP 09/20/2018 [id number] EXTRACTION OF PRODUCTS OF CONCEPTION, VA 09/20/2018 [id number] DELIVERY OF PRODUCTS OF CONCEPTION, EXTE 09/20/2018 Results Test Result Range Urine beta human chorionic gonadotropin (hCG) measurement - 09/30/16 07:20 Urine beta human chorionic gonadotropin (hCG) measurement NEGATIVE NEGATIVE Methicillin resistant Staphylococcus aureus (MRSA) screening culture - 09/30/16 07:20 Methicillin resistant Staphylococcus aureus (MRSA) screening culture NEG NRG Complete blood count (CBC) with automated white blood cell (WBC) differential - 09/30/16 07:28 Blood leukocytes automated count (number/volume) 6.5 10*3/uL 4.3-11.0 Blood erythrocytes automated count (number/volume) 5.00 10*6/uL 4.35-5.85 Venous blood hemoglobin measurement (mass/volume) 15.8 g/dL 11.5-16.0 Blood hematocrit (volume fraction) 44 % 35-52 Automated erythrocyte mean corpuscular volume 88 [foz_us] 80-99 Automated erythrocyte mean corpuscular hemoglobin (mass per erythrocyte) 32 pg 25-34 Automated erythrocyte mean corpuscular hemoglobin concentration measurement (mass/volume) 36 g/dL 32-36 Automated erythrocyte distribution width ratio 12.2 % 10.0- 14.5 Automated blood platelet count (count/volume) 317 10*3/uL 130-400 Automated blood platelet mean volume measurement 9.6 [foz_us] 7.4-10.4 Automated blood neutrophils/100 leukocytes 65 % 42-75 Automated blood lymphocytes/100 leukocytes 26 % 12-44 Blood monocytes/100 leukocytes 6 % 0-12 Automated blood eosinophils/100 leukocytes 3 % 0-10 Automated blood basophils/100 leukocytes 1 % 0-10 Blood neutrophils automated count (number/volume) 4.2 10*3 1.8-7.8 Blood lymphocytes automated count (number/volume) 1.7 10*3 1.0-4.0 Blood monocytes automated count (number/volume) 0.4 10*3 0.0- 1.0 Automated eosinophil count 0.2 10*3/uL 0.0-0.3 Automated blood basophil count (count/volume) 0.0 10*3/uL 0.0-0.1 Blood type T Indirect antibody screen panel - 09/30/16 07:28 ABO+Rh group OP [facility] Transfusion band number [id number] [facility] Blood group antibody screen NEGATIVE NR Complete urinalysis with reflex to culture - 09/20/18 03:35 Urine color determination YELLOW NRG Urine clarity determination CLEAR NR Urine pH measurement by test strip 7 5-9 Specific gravity of urine by test strip 1.010 1.016-1.022 Urine protein assay by test strip, semi-quantitative NEGATIVE NEGATIVE Urine glucose detection by automated test strip NEGATIVE NEGATIVE Erythrocytes detection in urine sediment by light microscopy NEGATIVE NEGATIVE Urine ketones detection by automated test strip NEGATIVE NEGATIVE Urine nitrite detection by test strip NEGATIVE NEGATIVE Urine total bilirubin detection by test strip NEGATIVE NEGATIVE Urine urobilinogen measurement by automated test strip (mass/volume) NORMAL NORMAL Urine leukocyte esterase detection by dipstick 2+ NEGATIVE Automated urine sediment erythrocyte count by microscopy (number/high power field) NONE NRG Automated urine sediment leukocyte count by microscopy (number/high power field) [HPF] NRG Bacteria detection in urine sediment by light microscopy TRACE NRG Squamous epithelial cells detection in urine sediment by light microscopy 5-10 NRG Crystals detection in urine sediment by light microscopy NONE NRG Casts detection in urine sediment by light microscopy NONE NRG Mucus detection in urine sediment by light microscopy NEGATIVE NRG Complete urinalysis with reflex to culture NO NRG Complete blood count (CBC) with automated white blood cell (WBC) differential - 09/20/18 15:03 Blood leukocytes automated count (number/volume) 13.2 10*3/uL 4.3-11.0 Blood erythrocytes automated count (number/volume) 4.34 10*6/uL 4.35-5.85 Venous blood hemoglobin measurement (mass/volume) 13.2 g/dL 11.5-16.0 Blood hematocrit (volume fraction) 38 % 35-52 Automated erythrocyte mean corpuscular volume 86 [foz_us] 80-99 Automated erythrocyte mean corpuscular hemoglobin (mass per erythrocyte) 30 pg 25-34 Automated erythrocyte mean corpuscular hemoglobin concentration measurement (mass/volume) 35 g/dL 32-36 Automated erythrocyte distribution width ratio 12.6 % 10.0- 14.5 Automated blood platelet count (count/volume) 230 10*3/uL 130-400 Automated blood platelet mean volume measurement 10.4 [foz_us] 7.4-10.4 Automated blood neutrophils/100 leukocytes 82 % 42-75 Automated blood lymphocytes/100 leukocytes 10 % 12-44 Blood monocytes/100 leukocytes 7 % 0-12 Automated blood eosinophils/100 leukocytes 0 % 0-10 Automated blood basophils/100 leukocytes 0 % 0-10 Blood neutrophils automated count (number/volume) 10.9 10*3 1.8-7.8 Blood lymphocytes automated count (number/volume) 1.3 10*3 1.0-4.0 Blood monocytes automated count (number/volume) 1.0 10*3 0.0- 1.0 Automated eosinophil count 0.0 10*3/uL 0.0-0.3 Automated blood basophil count (count/volume) 0.0 10*3/uL 0.0-0.1 Blood type T Indirect antibody screen panel - 09/20/18 15:03 ABO+Rh group OP NRG Transfusion band number [id number] NR[facility] Blood group antibody screen NEGATIVE NRG Complete urinalysis with reflex to culture - 09/20/18 15:05 Urine color determination YELLOW NRG Urine clarity determination CLEAR NRG Urine pH measurement by test strip 7 5-9 Specific gravity of urine by test strip 1.010 1.016-1.022 Urine protein assay by test strip, semi-quantitative NEGATIVE NEGATIVE Urine glucose detection by automated test strip NEGATIVE NEGATIVE Erythrocytes detection in urine sediment by light microscopy 1+ NEGATIVE Urine ketones detection by automated test strip NEGATIVE NEGATIVE Urine nitrite detection by test strip NEGATIVE NEGATIVE Urine total bilirubin detection by test strip NEGATIVE NEGATIVE Urine urobilinogen measurement by automated test strip (mass/volume) NORMAL NORMAL Urine leukocyte esterase detection by dipstick 2+ NEGATIVE Automated urine sediment erythrocyte count by microscopy (number/high power field) RARE NRG Automated urine sediment leukocyte count by microscopy (number/high power field) [HPF] NRG Bacteria detection in urine sediment by light microscopy FEW NRG Squamous epithelial cells detection in urine sediment by light microscopy 5-10 NRG Crystals detection in urine sediment by light microscopy PRESENT NRG Casts detection in urine sediment by light microscopy NONE NRG Mucus detection in urine sediment by light microscopy SMALL NRG Complete urinalysis with reflex to culture YES NRG Amorphous sediment detection in urine sediment by light microscopy FEW VIDYA PHOSPHATE NRG Bacterial urine culture - 09/20/18 15:05 Bacterial urine culture NG NRG Complete blood count (CBC) with automated white blood cell (WBC) differential - 09/21/18 06:00 Blood leukocytes automated count (number/volume) 17.6 10*3/uL 4.3-11.0 Blood erythrocytes automated count (number/volume) 3.90 10*6/uL 4.35-5.85 Venous blood hemoglobin measurement (mass/volume) 11.8 g/dL 11.5-16.0 Blood hematocrit (volume fraction) 34 % 35-52 Automated erythrocyte mean corpuscular volume 88 [foz_us] 80-99 Automated erythrocyte mean corpuscular hemoglobin (mass per erythrocyte) 30 pg 25-34 Automated erythrocyte mean corpuscular hemoglobin concentration measurement (mass/volume) 35 g/dL 32-36 Automated erythrocyte distribution width ratio 12.7 % 10.0- 14.5 Automated blood platelet count (count/volume) 248 10*3/uL 130-400 Automated blood platelet mean volume measurement 10.4 [foz_us] 7.4-10.4 Automated blood neutrophils/100 leukocytes 81 % 42-75 Automated blood lymphocytes/100 leukocytes 10 % 12-44 Blood monocytes/100 leukocytes 9 % 0-12 Automated blood eosinophils/100 leukocytes 0 % 0-10 Automated blood basophils/100 leukocytes 0 % 0-10 Blood neutrophils automated count (number/volume) 14.3 10*3 1.8-7.8 Blood lymphocytes automated count (number/volume) 1.7 10*3 1.0-4.0 Blood monocytes automated count (number/volume) 1.5 10*3 0.0- 1.0 Automated eosinophil count 0.0 10*3/uL 0.0-0.3 Automated blood basophil count (count/volume) 0.0 10*3/uL 0.0-0.1 Complete blood count (CBC) with automated white blood cell (WBC) differential - 03/22/19 08:05 Blood leukocytes automated count (number/volume) 5.0 10*3/uL 4.3-11.0 Blood erythrocytes automated count (number/volume) 4.74 10*6/uL 4.35-5.85 Venous blood hemoglobin measurement (mass/volume) 14.3 g/dL 11.5-16.0 Blood hematocrit (volume fraction) 42 % 35-52 Automated erythrocyte mean corpuscular volume 88 [foz_us] 80-99 Automated erythrocyte mean corpuscular hemoglobin (mass per erythrocyte) 30 pg 25-34 Automated erythrocyte mean corpuscular hemoglobin concentration measurement (mass/volume) 34 g/dL 32-36 Automated erythrocyte distribution width ratio 12.5 % 10.0- 14.5 Automated blood platelet count (count/volume) 297 10*3/uL 130-400 Automated blood platelet mean volume measurement 9.5 [foz_us] 7.4-10.4 Automated blood neutrophils/100 leukocytes 58 % 42-75 Automated blood lymphocytes/100 leukocytes 33 % 12-44 Blood monocytes/100 leukocytes 7 % 0-12 Automated blood eosinophils/100 leukocytes 2 % 0-10 Automated blood basophils/100 leukocytes 1 % 0-10 Blood neutrophils automated count (number/volume) 2.9 10*3 1.8-7.8 Blood lymphocytes automated count (number/volume) 1.7 10*3 1.0-4.0 Blood monocytes automated count (number/volume) 0.4 10*3 0.0- 1.0 Automated eosinophil count 0.1 10*3/uL 0.0-0.3 Automated blood basophil count (count/volume) 0.0 10*3/uL 0.0-0.1 Blood type T Indirect antibody screen panel - 03/22/19 08:05 WRISTBAND NUMBER [id number] NRG ABO+Rh group OP NRG Blood group antibody screen NEGATIVE NRG Encounters ACCT No. Visit Date/Time Discharge Status Pt. Type Provider Facility Loc./Unit Complaint [id number] 03/20/2019 05:35:00 03/20/2019 09:15:00 DIS Outpatient ESAU OLIVEROS DO [facility] PREOP ANTERIOR VAGINAL WALL MASS [id number] 03/14/2019 09:48:00 03/14/2019 23:59:59 CLS Outpatient ESAU OLIVEROS DO [facility] RAD VAGINAL MASS [id number] 02/02/2019 11:53:00 02/02/2019 23:59:59 CLS Outpatient SEAU OLIVEROS DO [facility] RAD DYSPAREUNIA IN FEMALE [id number] 09/20/2018 14:49:00 09/22/2018 19:05:00 DIS Inpatient ESAU OLIVEROS DO [facility] LDRP LABOR [id number] 09/20/2018 03:23:00 09/20/2018 05:35:00 DIS Outpatient ELISA NASCIMENTO DO [facility] WSo CONTRACTIONS [id number] 05/25/2018 10:02:00 05/25/2018 23:59:59 CLS Outpatient ESAU OLIVEROS DO [facility] RAD [id number] 09/30/2016 07:00:00 09/30/2016 10:06:00 DIS Outpatient ESAU OLIVEROS DO [facility] SDC RETAINED IUD [id number] 09/29/2016 05:39:00 09/29/2016 11:13:00 DIS Outpatient ESAU OLIVEROS DO [facility] PREOP RETAINED IUD [id number] 05/08/2013 21:44:00 05/11/2013 17:22:00 DIS Inpatient [id number] 03/22/2019 07:42:00 ACT Outpatient ESAU OLIVEROS DO [facility] SDC ANTERIOR VAGINAL WALL MASS
--- NOTE | 2019-03-22 22:50 | OPERATIVE REPORT ---
DATE OF SERVICE: PREOPERATIVE DIAGNOSIS: A 28-year-old female with anterior vaginal wall cyst. POSTOPERATIVE DIAGNOSIS: A 28-year-old female with anterior vaginal wall cyst. PROCEDURE: Excision anterior vaginal wall cyst. SURGEON: Esau Oliveros DO ANESTHESIA: General endotracheal. ESTIMATED BLOOD LOSS: 100 mL. URINE OUTPUT: 200 mL clear urine at the end of the procedure. FLUIDS: 1400 mL of lactated Ringer's solution. FINDINGS: There is an approximately 3 x 4 cm mucin containing cyst of the submucosa of the anterior vaginal wall. Grossly normal-appearing external female genitalia otherwise. SPECIMENS SENT: Anterior vaginal wall cyst. INDICATIONS FOR PROCEDURE: This 28-year-old female who had seen me in the office for significant amounts of dyspareunia that was getting worse since having her child. She was also feeling some pelvic pressure. On evaluation in the office, she initially thought that she had a cystocele; however, further evaluation revealed no cystocele, however, there was a bulge cystic in nature in the anterior vaginal wall that palpated to be submucosal. I did order a pelvic ultrasound, which confirmed the presence of this cyst, which appeared simple in nature to delineate whether it was part of the gynecologic or genitourinary system. A CT voiding cystourethrogram was ordered, which revealed no involvement of the urinary system, at which point I discussed with the patient, monitoring this versus excisional biopsy. Risks of both were discussed. She did end up monitored for about 4 weeks. There was no improvement and actually thought maybe it was getting a little bit worse. Therefore, we went forward with removal of this. Risks of the procedure were discussed with the patient in detail including risk of bleeding, infection, damage to surrounding structures including, but not limited to the bladder itself and the urethra. Permanent scarring of the vagina was also discussed. After all of her questions were answered, consent was obtained in the preoperative area and the patient was taken to the operating room. OPERATIVE REPORT IN DETAIL: Once in the operating room, anesthesia was found to be adequate, placed in dorsal lithotomy position, prepped and draped in normal sterile fashion. Timeout was performed. A Richard catheter was then placed first to help delineate from the urethra from this vaginal mass. The vaginal mass could be palpated easily. I infiltrated the submucosa of the superficial vaginal epithelium over the top of the mass using 0.25% Marcaine with epinephrine. Once the tissue blanches, I made an incision down the midline and dissect the underlying submucosa from the cyst, which is encountered at that point. During my dissection process, there was a rupture in the cyst those port out that appears to be clear, it is not purulent. I bluntly dissected the cyst off of the surrounding submucosal margins, which I do encounter some bleeding in the process of doing so. I end up recovering my dissection bed with FloSeal to help with postoperative hemostasis. I also closed the incision line using 3-0 Vicryl suture in running locked fashion and then finally there is still a small amount of bleeding noted from the incisional line. Therefore, I packed the vagina using vaginal packing and leave the Richard catheter in place. We will leave this in overnight and then remove in the morning. All the other instruments were removed from the patient's vagina. Lap and sponge counts were correct at the end of the procedure. Instrument counts correct as well. Job ID: [id number] DocumentID: [id number] Dictated Date: 03/22/2019 12:14:02 Mammography Technologist Date: 03/22/2019 22:50:31 Dictated By: ESAU OLIVEROS DO [facility]DR[facility]
--- NOTE | 2019-03-23 01:24 | OPERATIVE REPORT ---
DATE OF SERVICE: PREOPERATIVE DIAGNOSIS: A 28-year-old female with postoperative vaginal hemorrhage. POSTOPERATIVE DIAGNOSIS: A 28-year-old female with postoperative vaginal hemorrhage. PROCEDURE: Ligation of bleeding from the vaginal wound. SURGEON: Esau Oliveros DO. ANESTHESIA: General endotracheal. ESTIMATED BLOOD LOSS: 200 mL. URINE OUTPUT 20 mL, clear during the procedure. FLUIDS: 1000 mL of lactated Ringer solution. FINDINGS: Bleeding from the proximal margin of the vaginal incision. SPECIMENS SENT: None. INDICATIONS FOR PROCEDURE: This 28-year-old female who was admitted earlier today after excision of what was suspected to be a Rebecca's duct cyst of the vaginal wall. After her procedure, vaginal packing was applied. She was kept overnight for observation due to my concern with possible bleeding from this incision site. I was contacted by the nurses this afternoon saline and the vaginal packing had been soaked and she had soaked through the vaginal pad beneath her. I went to evaluate the patient and repacking the patient after which the packing was soaked again and blood within 5 minutes. I discussed the patient went back to the operating room to stop the bleeding. Risks of the procedure were discussed with the patient. She was escorted to the operating room by myself and nursing staff. OPERATIVE REPORT IN DETAIL: Once in the operating room, anesthesia was found to be adequate. She was placed in dorsal lithotomy position, prepped and draped in normal sterile fashion. The vaginal packing is removed and significant amount of blood clots approximately 60 to 80 mL of blood clots were removed from the vagina behind the packing. A weighted speculum was inserted in the patient's vagina. Right angle retractor is used to visualize the cervix to ensure there was no bleeding noted from the cervix, which there is none. After the bleeding is cleared from the vagina, I irrigated using normal saline and I am able to identify a squirting bleeder from the proximal incisional margin. I overrun this with 3-0 Vicryl suture in ligating fashion. This takes several different attempts. I end up running the incision again with locking 3-0 Vicryl suture, which does result in hemostasis of the previously bleeding area. After which I evaluate for approximately 5 minutes watching for any further bleeding. There is absolutely no bleeding whatsoever noted from anywhere on the vaginal incision. After that was done, the wound was again irrigated using normal saline. Once it was irrigated, I repacked the vagina with two separate vaginal packing soaked in Premarin cream. Richard catheter was left in place. The patient tolerated the procedure well and sent to recovery area in stable condition. Lap and sponge counts were correct at the end of the procedure. Instrument counts were correct as well. Job ID: [id number] DocumentID: [id number] Dictated Date: 03/22/2019 15:53:07 Mold Holder Date: 03/23/2019 01:23:54 Dictated By: ESAU OLIVEROS DO
[2019-03-23 02:37] VITALS: BP 88/52
--- NOTE | 2019-03-23 04:20 | NUR ---
Dr Yousif stopped into see patient. Patient sleeping. Verbal orders received that if patient is able to void and bleeding remains minimal that patient may go home without being rounded on if she desires to go prior to Dr arriving at hospital later this morning.
[2019-03-23 06:40] VITALS: BP 78/56
--- NOTE | 2019-03-23 06:45 | NUR ---
Patient vag packing and catheter removed, patient now ambulating up to bathroom with standby assist from this RN. Void of approx 25mL achieved. Fresh pad and underwear place on patient. Very scant bleeding noted to vag packing upon removal with no current active bleeding. Patient ambulated back to bed without difficulty. Instructed patient on how to order breakfast and to call next time she is wanting to get out of bed so that standby assist may be provided if she feels light headed. Patient voiced understanding. Call light remains within reach.
--- NOTE | 2019-03-23 08:00 | NUR ---
TO ROOM FOR ASSESSMENT, PT VOIDED 300 ML CLEAR, YELLOW URINE WITHOUT DIFFICULTY. DESIRES TO GO HOME.
--- NOTE | 2019-03-23 10:30 | NUR ---
DISCHARGE INSTRUCTIONS EXPLAINED TO PT WITH COPY PROVIDED TO PT ALONG WITH PRESCRIPTIONS. PT NOTIFIED OF FOLLOW UP APPT MADE FOR 4 WEEKS. PT VERBALIZES UNDERSTANDING OF INSTRUCTION, SIGNS TO VERIFY. DENIES QUESTIONS OR CONCERNS AT THIS TIME.
[2019-03-23 10:35] VITALS: BP 88/59
--- NOTE | 2019-03-23 10:35 | Anesthesia-General Post-Op ---
General Patient Condition Mental Status/LOC: Same as Preop Cardiovascular: Satisfactory Nausea/Vomiting: Absent Respiratory: Satisfactory Pain: Controlled Complications: Absent Post Op Complications Complications None Follow Up Care/Instructions Patient Instructions None needed. Anesthesia/Patient Condition Patient Condition Patient is doing well, no complaints, stable vital signs, no apparent adverse anesthesia problems. No complications reported per nursing. HODAN DAVIS CRNA Mar 23, 2019 10:35
--- NOTE | 2019-03-23 10:50 | NUR ---
PT TAKEN OFF UNIT VIA WHEELCHAIR ACCOMPANIED BY OB STAFF. TO PRIVATE VEHICLE WITH ALL PERSONAL BELONGINGS. NO S/S OF DISTRESS.
== END 2019-03-23 10:50 | disposition home or self-care (01) ==
LOC: SDC 07:42 → WS 11:08 → SDC 03-23 10:50 → WS 03-23 11:53
PROVIDERS: ATTEND Obstetrics & Gynecology
DX: Q52.4 Other congenital malformations of vagina (principal); T81.31XA Disruption of external operation (surgical) wound, not elsewhere classified, initial encounter; Z80.1 Family history of malignant neoplasm of trachea, bronchus and lung
CPT/HCPCS: 36415; 84703; 85025; 85027; 86850; 86900; 86901; 87081